=== PATIENT | female | born 1980 | race Caucasian/White ===

== ENCOUNTER 2019-02-04 16:18 | Inpatient (IN) ==
--- NOTE | 2019-02-04 16:35 | Emergency Department Note ---
Disposition Clinical Impression: Suicidal ideation, Auditory hallucinations Disposition: Still a Patient Condition: Undetermined Referrals: Jaimie Kumar [Primary Care Provider] - Time of Disposition: 19:12 General Adult HPI - General Stated complaint: SI Time Seen by Provider: 02/04/19 16:34 Source: patient, EMS Mode of arrival: EMS Limitations: no limitations Nursing Notes Reviewed: Yes Vital Signs Reviewed: Yes - History of Present Illness HPI Narrative: Patient is a 39-year-old female with a past medical history including anxiety and depression, currently not on medications, who does follow up with a psychiatrist, presenting from the halfway with auditory hallucinations and paranoid thoughts. 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 She relapsed yesterday and did IV heroin use. She states yesterday she did have visual hallucinations. She was in the halfway today for a short period of time. However towards the end of her stay, she was having auditory hallucinations. She was having paranoid thoughts. The halfway sent her here for psychiatric evaluation. Upon arrival, the patient was endorsing suicidal ideation and had no plan. She denies fevers, headaches, chest pain, shortness breath, abdominal pain, vomiting, any other complaints at this time. Denies homicidal thoughts. She denies any other drug use - Related Data Home Medications Medication Instructions Recorded Confirmed Topiramate [Topamax] 75 mg PO BID 03/22/17 11/13/18 Desloratadine/Pseudoephedrine 1 each PO DAILY 11/13/18 11/13/18 [Clarinex-D 12 Hour Tablet] Allergies Allergy/AdvReac Type Severity Reaction Status Date / Time aspirin Allergy Hives Verified 05/20/18 19:31 All systems ED: reviewed and negative except as stated. Review of Systems: As Per HPI Constitutional: Denies: fever, chills Cardiovascular: Denies: chest pain, palpitations Respiratory: Denies: dyspnea Gastrointestinal: Denies: abdominal pain, vomiting Neurological: Denies: headache, weakness Psychiatric: Reports: suicidal thoughts, auditory hallucinations, visual hallucinations. Denies: homicidal thoughts Past Medical History - Past Medical History Attestation: Yes The following information was validated with the patient. 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 - Social History Smoking Status: Current every day smoker Smokeless Tobacco Status: No Alcohol use: Reports: none Drug use: Reports: none, other Physical Exam - General Limitations: no limitations General appearance: alert, in no apparent distress - Head Head exam: atraumatic, normocephalic, normal inspection - Eye Eye exam: Present: normal appearance, PERRL, EOMI - ENT ENT exam: normal exam, normal oropharynx, mucous membranes moist - Neck Neck exam: Present: normal inspection, full ROM, trachea midline - Chest Chest inspection: Present: normal inspection, symmetric chest wall rise - Respiratory Respiratory exam: Present: normal lung sounds bilaterally. Absent: respiratory distress - Cardiovascular Cardiovascular exam: Present: regular rate, normal rhythm, normal heart sounds - Abdominal Exam Abdominal exam: Present: soft, Non-Tender. Absent: distention - Extremities Exam Extremities exam: Present: full ROM, normal capillary refill - Neurological Exam Neurological exam: Present: alert, oriented X3 - Psychiatric Psychiatric exam: Present: anxious, suicidal ideation, other (Patient appears paranoid) - Skin Skin exam: Present: warm, dry Course Vital Signs Temperature 97.2 F L 02/04/19 16:30 Pulse Rate 103 02/04/19 16:30 Respiratory Rate 18 02/04/19 16:30 Blood Pressure 114/70 02/04/19 16:30 O2 Sat by Pulse Oximetry 100 02/04/19 16:30 Temperature 97.2 F L 02/04/19 16:30 Pulse Rate 103 02/04/19 16:30 Respiratory Rate 18 02/04/19 16:30 Blood Pressure 114/70 02/04/19 16:30 O2 Sat by Pulse Oximetry 100 02/04/19 16:30 Oxygen Delivery Oxygen Delivery Room Air Medical Decision Making - [facility] Narrative Medical decision making narrative: Patient is presenting from the halfway with auditory hallucinations and concerns of paranoid thought. They sent her to the emergency department for psychiatric evaluation. Patient does have history of an anxiety and depression and a prior inpatient hospitalization. Towards the end of the evaluation, the patient was endorsing suicidal ideation but did not have a plan. She denies any hallucinations at this time. Patient does appear slightly paranoid. We will obtain medical clearance and have 1A/psychiatry evaluate the patient. [place] slipped signed. 19:00 The patient has been medically cleared. Awaiting 1A/psychiatry evaluation. Their recommendations are pending. [facility], Dr. Perez. - Medical Records Medical records reviewed: Yes I reviewed the patient's medical records. - Lab Data Lab results reviewed: Yes I reviewed the patient's lab results. Result diagrams: 02/04/19 16:34 02/04/19 16:34 Lab Results 02/04/19 02/04/19 Range/Units 16:34 16:34 WBC 8.8 (4.3-11.1) K/mcL RBC 4.15 (3.82-4.97) M/mcL Hgb 12.5 (11.5-15.4) g/dL Hct 36.6 (35.3-44.9) % MCV 88.2 (83.0-100.0) fL MCH 30.1 (28.0-33.3) pg MCHC 34.2 (31.6-35.5) g/dL RDW 12.7 (11.5-14.5) % Plt Count 273 (140-400) K/mcL MPV 9.9 (9.4-12.4) fL Immature Gran % 0.3 (0-4) % Seg Neutrophils % 59.4 % Lymphocytes % 30.9 % Monocytes % 8.2 % Eosinophils % 0.7 % Basophils % 0.5 % Neutrophils # 5.2 (1.6-8.9) K/mcL Lymphocytes # 2.7 (0.6-4.6) K/mcL Monocytes # 0.7 (0.0-1.3) K/mcL Eosinophils # 0.1 (0.0-0.6) K/mcL Basophils # 0.0 (0.0-0.2) K/mcL Sodium 137 (136-145) mEq/L Potassium 3.3 L (3.5-5.1) mEq/L Chloride 98 (98-107) mEq/L Carbon Dioxide 24 (23-29) mEq/L BUN 11 (6-20) mg/dL Creatinine 1.04 (0.60-1.20) mg/dL Est GFR ( Amer) > 60 (> 60) Est GFR (Non-Af Amer) 59 L (> 60) BUN/Creatinine Ratio 11 (6-26) Glucose 88 (70-105) mg/dL Calculated Osmolality 283 (280-300) Calcium 9.3 (8.6-10.3) mg/dL Salicylates < 2.5 L (15.0-30.0) mg/dL Acetaminophen < 10 L (10-20) mcg/mL Ethyl Alcohol < 10 (Less than 10) mg/dL Attestation Statement - Attestation Attestation: Patient was seen with resident physician. I reviewed the history, physical, assessment and plan, and agree with the findings. I also personally evaluated this patient and had [id number] time with this patient. 39-year-old female presents emergency Department chief complaint of hallucinations and suicidal ideation. Patient was at the halfway. It is unclear why she was resting the first place. But she was noted to start having some hallucinations. At which point the halfway contacted EMS and she was brought to the emergency department. On arrival patient initially denied suicidal ideation but then later admitted to several staff that she is been thinking that way. She says she is a heroin abuser. She said she has not used heroin in the last day. She denies fevers chills chest pain short of breath or other complaints. Review of systems as above and are negative. Physical exam vital signs are stable. ENT is unremarkable. Heart regular rhythm and rate. Lungs are clear. Abdomen is soft and nontender. Extremities are unremarkable. Neurologically intact. Skin no rashes. Psych anxious and depressed. ED course. We will do the usual medical clearance labs for psychiatry. Patient was placed on a temporary involuntary admission status. She will need a formal psychiatric evaluation to determine disposition. Hemodynamically she was monitored in stable while in the emergency department. We are awaiting urinalysis at the time of shift change. One a had not yet come evaluate the patient. We discussed with night auditor team who agreed to accept the patient for final disposition. Agree with resident physician assessment and plan.
[2019-02-04] MEDS ORDERED: *HR* LORazepam 1 MG TABLET PO ONE (16:45)
[2019-02-04 18:24] LABS: Basophils % 0.5 %; Eosinophils # 0.1 K/mcL (0.0-0.6); Eosinophils % 0.7 %; Hematocrit 36.6 % (35.3-44.9); Hemoglobin 12.5 g/dL (11.5-15.4); Immature Granulocytes % 0.3 % (0-4); Lymphocytes # 2.7 K/mcL (0.6-4.6); Lymphocytes % 30.9 %; Mean Corpuscular HGB Conc 34.2 g/dL (31.6-35.5); Mean Corpuscular Hemoglobin 30.1 pg (28.0-33.3); Mean Corpuscular Volume 88.2 fL (83.0-100.0); Mean Platelet Volume 9.9 fL (9.4-12.4); Monocytes # 0.7 K/mcL (0.0-1.3); Monocytes % 8.2 %; Neutrophils # 5.2 K/mcL (1.6-8.9); Platelet Count 273 K/mcL (140-400); Red Blood Count 4.15 M/mcL (3.82-4.97); Red Cell Distribution Width 12.7 % (11.5-14.5); Segmented Neutrophils % 59.4 %; White Blood Count 8.8 K/mcL (4.3-11.1)
[2019-02-04 18:44] LABS: Acetaminophen < 10 mcg/mL (10-20); BUN/Creatinine Ratio 11 (6-26); Blood Urea Nitrogen 11 mg/dL (6-20); Calcium 9.3 mg/dL (8.6-10.3); Carbon Dioxide 24 mEq/L (23-29); Chloride 98 mEq/L (98-107); Ethanol < 10 mg/dL (Less than 10); Glucose 88 mg/dL (70-105); Osmolality,Calculated 283 (280-300); Potassium 3.3 mEq/L (3.5-5.1); Salicylate < 2.5 mg/dL (15.0-30.0); Sodium 137 mEq/L (136-145); eGFR For African Americans > 60 (> 60); eGFR For Non-African Americans 59 (> 60)
--- NOTE | 2019-02-04 19:04 | Emergency Department Note ---
Disposition Clinical Impression: Suicidal ideation, Auditory hallucinations Disposition: Admitted As Inpatient Condition: Fair Referrals: Jaimie Kumar [Primary Care Provider] - Time of Disposition: 23:18 General Adult HPI - General Chief complaint: ED Psychiatric Symptoms Stated complaint: SI Time Seen by Provider: 02/04/19 16:34 Source: patient, EMS Limitations: altered mental status - History of Present Illness Pain Scale: 5 - Related Data Home Medications Medication Instructions Recorded Confirmed Topiramate [Topamax] 75 mg PO BID 03/22/17 11/13/18 Desloratadine/Pseudoephedrine 1 each PO DAILY 11/13/18 11/13/18 [Clarinex-D 12 Hour Tablet] Allergies Allergy/AdvReac Type Severity Reaction Status Date / Time aspirin Allergy Hives Verified 05/20/18 19:31 Past Medical History - Past Medical History Medical history: Reports: migraine Surgical history: Reports: , herniorrhaphy, hysterectomy Psychiatric history: Reports: anxiety, depression, 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 - Social History Smoking Status: Current every day smoker Smokeless Tobacco Status: No Alcohol use: Reports: none Drug use: Reports: opiates, other Physical Exam - General Limitations: altered mental status General appearance: alert, anxious Course Vital Signs Temperature 97.2 F L 02/04/19 16:30 Pulse Rate 103 02/04/19 16:30 Respiratory Rate 18 02/04/19 16:30 Blood Pressure 114/70 02/04/19 16:30 O2 Sat by Pulse Oximetry 100 02/04/19 16:30 Temperature 97.2 F L 02/04/19 16:30 Pulse Rate 103 02/04/19 16:30 Respiratory Rate 18 02/04/19 16:30 Blood Pressure 114/70 02/04/19 16:30 O2 Sat by Pulse Oximetry 100 02/04/19 16:30 Oxygen Delivery Oxygen Delivery Room Air Medical Decision Making - Lab Data Result diagrams: 02/04/19 16:34 02/04/19 16:34 Lab Results 02/04/19 02/04/19 02/04/19 Range/Units 16:34 16:34 19:13 WBC 8.8 (4.3-11.1) K/mcL RBC 4.15 (3.82-4.97) M/mcL Hgb 12.5 (11.5-15.4) g/dL Hct 36.6 (35.3-44.9) % MCV 88.2 (83.0-100.0) fL MCH 30.1 (28.0-33.3) pg MCHC 34.2 (31.6-35.5) g/dL RDW 12.7 (11.5-14.5) % Plt Count 273 (140-400) K/mcL MPV 9.9 (9.4-12.4) fL Immature Gran % 0.3 (0-4) % Seg Neutrophils % 59.4 % Lymphocytes % 30.9 % Monocytes % 8.2 % Eosinophils % 0.7 % Basophils % 0.5 % Neutrophils # 5.2 (1.6-8.9) K/mcL Lymphocytes # 2.7 (0.6-4.6) K/mcL Monocytes # 0.7 (0.0-1.3) K/mcL Eosinophils # 0.1 (0.0-0.6) K/mcL Basophils # 0.0 (0.0-0.2) K/mcL Sodium 137 (136-145) mEq/L Potassium 3.3 L (3.5-5.1) mEq/L Chloride 98 (98-107) mEq/L Carbon Dioxide 24 (23-29) mEq/L BUN 11 (6-20) mg/dL Creatinine 1.04 (0.60-1.20) mg/dL Est GFR ( Amer) > 60 (> 60) Est GFR (Non-Af Amer) 59 L (> 60) BUN/Creatinine Ratio 11 (6-26) Glucose 88 (70-105) mg/dL Calculated Osmolality 283 (280-300) Calcium 9.3 (8.6-10.3) mg/dL Urine Color Dark Yellow (Yellow) Urine Clarity Turbid A (Clear) Urine pH 6.0 (5.0-8.0) pH Units Ur Specific [place] 1.021 (1.010-1.025) Urine Protein 30 H (Neg-Trace) mg/dL Urine Glucose (UA) Normal (Normal) mg/dL Urine Ketones 15 H (Negative) mg/dL Urine Blood Negative (Negative) Urine Nitrite Negative (Negative) Urine Bilirubin Small H (Negative) Urine Urobilinogen Normal (Normal) mg/dL Ur Leukocyte Esterase Moderate H (Negative) Urine Microscopic RBC 0-3 (0-3) per hpf Urine Microscopic WBC 50-100 H (0-3) per hpf Ur Squamous Epith Cells Many H (None-Few) per lpf Calcium Oxalate Crystal Present Urine Bacteria Many H (None-Few) per hpf Hyaline Casts Few (None-Few) per lpf Salicylates < 2.5 L (15.0-30.0) mg/dL Urine Opiates Screen (Zwckak=341) ng/mL Ur Buprenorphine Scrn (Cutoff=5) ng/mL Acetaminophen < 10 L (10-20) mcg/mL Ur Barbiturates Screen (Ggmltk=655) ng/mL Ur Phencyclidine Scrn (Cutoff=25) ng/mL Ur Amphetamines Screen (Jquryc=4463) ng/mL U Benzodiazepines Scrn (Sazifd=923) ng/mL Urine Cocaine Screen (Cutoff= 300) ng/mL U Marijuana (THC) Screen (Cutoff = 50) ng/mL Ur Drug Screen Interp Ethyl Alcohol < 10 (Less than 10) mg/dL 02/04/19 Range/Units 19:13 WBC (4.3-11.1) K/mcL RBC (3.82-4.97) M/mcL Hgb (11.5-15.4) g/dL Hct (35.3-44.9) % MCV (83.0-100.0) fL MCH (28.0-33.3) pg MCHC (31.6-35.5) g/dL RDW (11.5-14.5) % Plt Count (140-400) K/mcL MPV (9.4-12.4) fL Immature Gran % (0-4) % Seg Neutrophils % % Lymphocytes % % Monocytes % % Eosinophils % % Basophils % % Neutrophils # (1.6-8.9) K/mcL Lymphocytes # (0.6-4.6) K/mcL Monocytes # (0.0-1.3) K/mcL Eosinophils # (0.0-0.6) K/mcL Basophils # (0.0-0.2) K/mcL Sodium (136-145) mEq/L Potassium (3.5-5.1) mEq/L Chloride (98-107) mEq/L Carbon Dioxide (23-29) mEq/L BUN (6-20) mg/dL Creatinine (0.60-1.20) mg/dL Est GFR ( Amer) (> 60) Est GFR (Non-Af Amer) (> 60) BUN/Creatinine Ratio (6-26) Glucose (70-105) mg/dL Calculated Osmolality (280-300) Calcium (8.6-10.3) mg/dL Urine Color (Yellow) Urine Clarity (Clear) Urine pH (5.0-8.0) pH Units Ur Specific [place] (1.010-1.025) Urine Protein (Neg-Trace) mg/dL Urine Glucose (UA) (Normal) mg/dL Urine Ketones (Negative) mg/dL Urine Blood (Negative) Urine Nitrite (Negative) Urine Bilirubin (Negative) Urine Urobilinogen (Normal) mg/dL Ur Leukocyte Esterase (Negative) Urine Microscopic RBC (0-3) per hpf Urine Microscopic WBC (0-3) per hpf Ur Squamous Epith Cells (None-Few) per lpf Calcium Oxalate Crystal Urine Bacteria (None-Few) per hpf Hyaline Casts (None-Few) per lpf Salicylates (15.0-30.0) mg/dL Urine Opiates Screen Negative (Nkdszf=219) ng/mL Ur Buprenorphine Scrn Positive H (Cutoff=5) ng/mL Acetaminophen (10-20) mcg/mL Ur Barbiturates Screen Negative (Vjrata=451) ng/mL Ur Phencyclidine Scrn Negative (Cutoff=25) ng/mL Ur Amphetamines Screen Positive H (Mglgin=6590) ng/mL U Benzodiazepines Scrn Negative (Kmxxxs=817) ng/mL Urine Cocaine Screen Positive H (Cutoff= 300) ng/mL U Marijuana (THC) Screen Negative (Cutoff = 50) ng/mL Ur Drug Screen Interp See Below Ethyl Alcohol (Less than 10) mg/dL Attestation Statement - Attestation Attestation: Care assumed from Dr. Vegas at 19:00 pending mental health evaluation. Urine pending. Patient appears in no acute distress on exam 23:18: 1A accepts admission
[2019-02-04 19:28] LABS: Bilirubin,Urine Small (Negative); Blood,Urine Negative (Negative); Clarity,Urine Turbid (Clear); Color,Urine Dark Yellow (Yellow); Glucose,Urine (UA) Normal (Normal); Ketones,Urine 15 mg/dL (Negative); Leukocyte Esterase,Urine Moderate (Negative); Nitrite,Urine Negative (Negative); Protein,Urine 30 mg/dL (Neg-Trace); Specific Gravity,Urine 1.021 (1.010-1.025); Urobilinogen,Urine Normal (Normal)
[2019-02-04 19:30] LABS: Bacteria,Urine Many per hpf (None-Few); Squamous Epithelial Cell,Urine Many per lpf (None-Few)
[2019-02-04 19:37] LABS: Amphetamine Screen,Urine Positive ng/mL (Cutoff=1000); Barbiturate Screen,Urine Negative ng/mL (Cutoff=200); Benzodiazepines Screen,Urine Negative ng/mL (Cutoff=200); Cannabinoid Screen,Urine Negative ng/mL (Cutoff = 50); Cocaine Screen,Urine Positive ng/mL (Cutoff= 300); Opiate Screen,Urine Negative ng/mL (Cutoff=300); Phencyclidine Screen,Urine Negative ng/mL (Cutoff=25)
[2019-02-04 19:40] LABS: Calcium Oxalate Crystals,Urine Present; Hyaline Casts,Urine Few per lpf (None-Few); RBC,Urine 0-3 per hpf (0-3); WBC,Urine 50-100 per hpf (0-3)
[2019-02-04] MEDS ORDERED: OLANZapine 5 MG TAB.RAPDIS PO ONE (23:45)
[2019-02-05] MEDS ORDERED: Haloperidol Lactate 5 MG/ML VIAL IM PRN (00:02)
[2019-02-05] MEDS ORDERED: traZODone 50 MG TABLET PO PRN (00:02)
[2019-02-05] MEDS ORDERED: Ibuprofen 400 MG TABLET PO PRN (00:02)
[2019-02-05] MEDS ORDERED: MOM Conc 10 ML UD.LIQ PO PRN (00:02)
[2019-02-05] MEDS ORDERED: *HR* LORazepam 2 MG/ML VIAL IM PRN (00:02)
[2019-02-05] MEDS ORDERED: hydrOXYzine pamoate 25 MG CAPSULE PO PRN (00:02)
[2019-02-05] MEDS ORDERED: *HR* LORazepam 1 MG TABLET PO PRN (00:02)
[2019-02-05] MEDS ORDERED: Mag Hydrox/Al Hydrox/Simeth 30 ML UDC PO PRN (00:02)
[2019-02-05] MEDS: Nicotine 21 MG PATCH.TD24 TD SCH ×2 (10:13→17:36)
--- NOTE | 2019-02-05 15:31 | Psychiatry History & Physical ---
Date of Encounter: 02/05/19 Time of Encounter: 11:00 History of Present Illness Patient Stated Chief Complaint: Disorderly intoxication and suicidal thoughts Medicare Admission Attestation: For traditional Medicare patients the provided hospital inpatient services are reasonable and necessary and in the case of services not specified as inpatient-only under 42 CFR 419.22 (n), that they are appropriately provided as inpatient services in accordance 42 CFR 412.3. For Critical Access Hospital the patient may reasonably be expected to be discharged or transferred to a hospital within 96 hours after admission to the Critical Access Hospital. Admitted From: Emergency Dept Plans for Post Hospital Care: Home History of Present Illness: Ms. Delgado is a 39 year old female with past medical history including anxiety and depression, currently not on medications. She presents from the ER and was brought in from the retirement with auditory hallucinations and paranoid thoughts. Client endorses being clean from heroin for past 4 years and completion of rehabilitation program. She reports relapsing yesterday and did IV heroin. She does report visual hallucinations yesterday, but denies them currently. She does report auditory hallucinations while in longterm and paranoid thoughts, but denies them currently. In the ER she endorsed suicidal ideation without plan. Client was hard to arouse to obtain for review of systems and history. Client did describe several suicidal attempts and admits to [place] 1A, but would not elaborate. Unable to ascertain other information about clients history or c urrent mental status due refusal by client at time of interview. Urine toxicology was positive for methamphetamine, buprenorphine and cocaine. OARRS check shows Subloxone last filled on 12/28/18 for 7 days at 16 mg/day. Past Med Surg Social Fam HX - Past Medical History Medical history: migraine - Past Surgical History Surgical History: , cholecystectomy, herniorrhaphy, hysterectomy - Social History Smoking Status: Current every day smoker Smokeless Tobacco Status: No Alcohol use: none Drug use: opiates, methamphetamine, IV Drug Use, other Medications & Allergies Topiramate [Topamax] 75 mg PO BID 03/22/17 [History] Desloratadine/Pseudoephedrine [Clarinex-D 12 Hour Tablet] 1 each PO DAILY 11/13/18 [History] Allergy/AdvReac Type Severity Reaction Status Date / Time aspirin Allergy Hives Verified 05/20/18 19:31 Review of Systems ROS limited: due to patient condition (Client refused to participate and complete evaluation. ) Constitutional: Denies: fever, weakness, night sweats Cardiovascular: Denies: chest pain, palpitations, edema, syncope Respiratory: Denies: cough, dyspnea, sputum production Musculoskeletal: Denies: myalgia Psychiatric: Reports: depression, abnormal sleep pattern (Self-reports not sleeping for past few days. ). Denies: suicidal ideation, visual hallucinations Exam - HEENT Head exam IM: Present: atraumatic, normal inspection Eye exam IM: Present: normal appearance ENT exam IM: Present: normal exam, normal external ear exam - Neurological Neurological exam: Present: alert - Respiratory Respiratory exam IM: Absent: respiratory distress, wheezes, tachypnea - Extremities Extremities exam IM: Present: normal inspection. Absent: mottling, pedal edema - Skin Skin exam IM: Present: intact, normal color. Absent: cyanosis, mottled - Constitutional Vitals: Temp Pulse Resp BP Pulse Ox 98.2 F 105 18 107/69 98 02/05/19 00:00 02/05/19 00:00 02/05/19 00:00 02/05/19 00:00 02/05/19 00:00 General appearance: unkempt, malodorous - Musculoskeletal Gait: normal Station: relaxed Strength & Tone: normal for patient - Psychiatric Patient Orientation: Yes Person, Yes Time, Yes Place, Yes Circumstance Level of alertness: Sedated Behavior: agitated, uncooperative, withdrawn Psychomotor activity: Slowed Eye Contact: No Eye Contact Mood Description: Euthymic/stable Affect description: congruent with mood Speech Volume: Soft/Quiet Speech pattern: normal rate, mumbled Language & Vocabulary: consistent with education Thought Process: Intact, Logical, Linear Thought Content: Yes Intact, Yes Suicidal ideation Perceptual Disturbances: No Reacting to internal stimuli, No Auditory hallucinations, No Visual hallucinations Attention Span Ability: Unable to Focus, Unable to Sustain Attention Memory Description: Immediate Intact Patient Reliability: Questionable Historian Fund of knowledge: Yes average Intelligence Estimate: Above [place] Judgment: Poor Insight: Minimal Results - Drug Levels and Toxicology Drug Levels and Toxicology: Drug Levels and Toxicity 02/04/19 02/04/19 16:34 19:13 Urine Opiates Screen Negative Acetaminophen < 10 L Ur Barbiturates Screen Negative Ur Phencyclidine Scrn Negative Ur Amphetamines Screen Positive H U Benzodiazepines Scrn Negative Urine Cocaine Screen Positive H U Marijuana (THC) Screen Negative Ethyl Alcohol < 10 - Labs Labs: Laboratory Last Values WBC 8.8 K/mcL (4.3-11.1) 02/04/19 16:34 RBC 4.15 M/mcL (3.82-4.97) 02/04/19 16:34 Hgb 12.5 g/dL (11.5-15.4) 02/04/19 16:34 Hct 36.6 % (35.3-44.9) 02/04/19 16:34 MCV 88.2 fL (83.0-100.0) 02/04/19 16:34 MCH 30.1 pg (28.0-33.3) 02/04/19 16:34 MCHC 34.2 g/dL (31.6-35.5) 02/04/19 16:34 RDW 12.7 % (11.5-14.5) 02/04/19 16:34 Plt Count 273 K/mcL (140-400) 02/04/19 16:34 MPV 9.9 fL (9.4-12.4) 02/04/19 16:34 Immature Gran % 0.3 % (0-4) 02/04/19 16:34 Seg Neutrophils % 59.4 % 02/04/19 16:34 Lymphocytes % 30.9 % 02/04/19 16:34 Monocytes % 8.2 % 02/04/19 16:34 Eosinophils % 0.7 % 02/04/19 16:34 Basophils % 0.5 % 02/04/19 16:34 Neutrophils # 5.2 K/mcL (1.6-8.9) 02/04/19 16:34 Lymphocytes # 2.7 K/mcL (0.6-4.6) 02/04/19 16:34 Monocytes # 0.7 K/mcL (0.0-1.3) 02/04/19 16:34 Eosinophils # 0.1 K/mcL (0.0-0.6) 02/04/19 16:34 Basophils # 0.0 K/mcL (0.0-0.2) 02/04/19 16:34 Sodium 137 mEq/L (136-145) 02/04/19 16:34 Potassium 3.3 mEq/L (3.5-5.1) L 02/04/19 16:34 Chloride 98 mEq/L (98-107) 02/04/19 16:34 Carbon Dioxide 24 mEq/L (23-29) 02/04/19 16:34 BUN 11 mg/dL (6-20) 02/04/19 16:34 Creatinine 1.04 mg/dL (0.60-1.20) 02/04/19 16:34 Est GFR ( Amer) > 60 (> 60) 02/04/19 16:34 Est GFR (Non-Af Amer) 59 (> 60) L 02/04/19 16:34 BUN/Creatinine Ratio 11 (6-26) 02/04/19 16:34 Glucose 88 mg/dL (70-105) 02/04/19 16:34 Calculated Osmolality 283 (280-300) 02/04/19 16:34 Calcium 9.3 mg/dL (8.6-10.3) 02/04/19 16:34 Urine Color Dark Yellow (Yellow) 02/04/19 19:13 Urine Clarity Turbid (Clear) A 02/04/19 19:13 Urine pH 6.0 pH Units (5.0-8.0) 02/04/19 19:13 Ur Specific [place] 1.021 (1.010-1.025) 02/04/19 19:13 Urine Protein 30 mg/dL (Neg-Trace) H 02/04/19 19:13 Urine Glucose (UA) Normal mg/dL (Normal) 02/04/19 19:13 Urine Ketones 15 mg/dL (Negative) H 02/04/19 19:13 Urine Blood Negative (Negative) 02/04/19 19:13 Urine Nitrite Negative (Negative) 02/04/19 19:13 Urine Bilirubin Small (Negative) H 02/04/19 19:13 Urine Urobilinogen Normal mg/dL (Normal) 02/04/19 19:13 Ur Leukocyte Esterase Moderate (Negative) H 02/04/19 19:13 Urine Microscopic RBC 0-3 per hpf (0-3) 02/04/19 19:13 Urine Microscopic WBC 50-100 per hpf (0-3) H 02/04/19 19:13 Ur Squamous Epith Cells Many per lpf (None-Few) H 02/04/19 19:13 Calcium Oxalate Crystal Present 02/04/19 19:13 Urine Bacteria Many per hpf (None-Few) H 02/04/19 19:13 Hyaline Casts Few per lpf (None-Few) 02/04/19 19:13 Salicylates < 2.5 mg/dL (15.0-30.0) L 02/04/19 16:34 Urine Opiates Screen Negative ng/mL (Zyoxxy=910) 02/04/19 19:13 Ur Buprenorphine Scrn Positive ng/mL (Cutoff=5) H 02/04/19 19:13 Acetaminophen < 10 mcg/mL (10-20) L 02/04/19 16:34 Ur Barbiturates Screen Negative ng/mL (Ualtqk=364) 02/04/19 19:13 Ur Phencyclidine Scrn Negative ng/mL (Cutoff=25) 02/04/19 19:13 Ur Amphetamines Screen Positive ng/mL (Zktdqw=0367) H 02/04/19 19:13 U Benzodiazepines Scrn Negative ng/mL (Tropfc=672) 02/04/19 19:13 Urine Cocaine Screen Positive ng/mL (Cutoff= 300) H 02/04/19 19:13 U Marijuana (THC) Screen Negative ng/mL (Cutoff = 50) 02/04/19 19:13 Ur Drug Screen Interp See Below 02/04/19 19:13 Ethyl Alcohol < 10 mg/dL (Less than 10) 02/04/19 16:34 Assessment and Plan (1) Drug-induced psychotic disorder with hallucinations Current visit: Yes Status: Acute Plan: Admit inpatient for safety and stabilization, Close observation, Suicide Precautions per unit protocol, Monitor sleep Additional Plan: Start client on atypical antipsychotic medication Olanzapine 10 mg PO once daily for mood stability and treat psychotic features. Risks, benefits, side effects, alternatives discussed w/pt: Yes Patient agreeable to treatment: Yes Plans for Post Hospital Care: at Home Estimated Length of Stay (Days): 3 - Attending Attestation I examined this patient and my medical decision-making was reviewed with the Resident Physician. I agree with the documented findings, disposition and treatment plan as described except to the extent set forth below. Client refused to engage with this blurb writer. Multiple staff members attempted to get her out of bed. Client stated she was too tired and repeatedly fell asleep. Minimally cooperative with resident this morning. Tox screen positive for multiple substances. Likely crashing. Psychosis may be all substance induced. Will monitor for now.
[2019-02-06] MEDS: Nicotine 21 MG PATCH.TD24 TD SCH (09:22)
--- NOTE | 2019-02-06 10:14 | Discharge Summary ---
Date of Encounter: 02/06/19 Time of Encounter: 10:00 Diagnosis - Discharge Diagnosis (1) Drug-induced psychotic disorder with hallucinations Status: Acute Medications - Discharge Medications Desloratadine/Pseudoephedrine [Clarinex-D 12 Hour Tablet] 1 tab PO DAILY PRN 11/13/18 [History] Doxepin HCl 10 mg PO HS 02/05/19 [History] Gabapentin [Neurontin] 300 mg PO BID 02/05/19 [History] Ibuprofen 800 mg PO TID PRN 02/05/19 [History] Topiramate [Topamax] 100 mg PO BID 02/05/19 [History] cloNIDine HCl [CloNIDine HCl] 0.1 mg PO BID PRN 02/05/19 [History] Allergy/AdvReac Type Severity Reaction Status Date / Time aspirin Allergy Hives Verified 05/20/18 19:31 Results Procedures and tests throughout hospitalization: Completed Lab Orders Category Date Time Status Acetaminophen Stat Lab 02/04/19 16:34 Completed Basic Metabolic Panel Stat Lab 02/04/19 16:34 Completed Complete Blood Count [HEME] Stat Lab 02/04/19 16:34 Completed Drug Screen, Urine [UCHEM] Stat Lab 02/04/19 19:13 Completed Ethanol Stat Lab 02/04/19 16:34 Completed Salicylate Stat Lab 02/04/19 16:34 Completed Urinalysis reflex Microscopic [URIN] Stat Lab 02/04/19 19:13 Completed Provider Date of admission: 02/05/19 00:02 Primary care physician: PCP NONE Discharging clinician: Jacey Allen Psychiatry Exam - Constitutional Vitals: Temp Pulse Resp BP Pulse Ox 97.9 F 70 16 107/67 98 02/05/19 21:00 02/05/19 21:00 02/05/19 21:00 02/05/19 21:00 02/05/19 21:00 General appearance: age & developmentally appropriate, well-groomed, well- nourished - Musculoskeletal Gait: normal Station: relaxed Strength & Tone: normal for patient - Psychiatric Patient Orientation: Yes Person, Yes Time, Yes Place Level of alertness: Alert Behavior: calm, cooperative Psychomotor activity: Normal Eye Contact: Maintains Eye Contact Mood Description: Euthymic/stable Affect description: congruent with mood, full range Speech Volume: Normal Speech pattern: normal rate, normal rhythm, normal tone, fluent, spontaneous Language & Vocabulary: consistent with education Thought Process: Linear, Goal Oriented Thought Content: No Suicidal ideation, No Homicidal ideation, No Overt delusions Perceptual Disturbances: No Auditory hallucinations, No Visual hallucinations Attention Span Ability: Capable of Focused Attention Memory Description: Grossly Intact Patient Reliability: Reliable Historian Fund of knowledge: Yes abstraction ability, Yes aware of current events Intelligence Estimate: Average Judgment: Fair Insight: Partial Hospital Course Hospital course: Ms. Delgado is a 39 year old female who was admitted with meth induced psychosis. Client was also endorsing SI/HI at time of admission. She has slept on the unit for the past two days and would not wake up to interact with staff. Today she is awake and alert. Very pleasant. Thinking clearly. Client states she used to be heavy into drugs. Heroin was her drug of choice and she used for more than ten years. She joined a Suboxone Clinic and has been sober for the last four years. However, she could not afford to make her Suboxone payment at the end of November and rescheduled her appointment. That was her second reschedule so the clinic told her she could not come back for 29 days. Client relapsed that first week off her Suboxone. Has been buying Suboxone off the street since December when she can afford it. Sees Dr. Fulton at [facility] for mild depression. Currently only takes Clonidine from Dr. Fulton at night to help her sleep. Also prescribed Topamax for headaches and Neurontin for neuropathic pain from an old injury. Dr. Fulton got client into a free Suboxone Clinic and her first appointment is tomorrow. Client does not want to miss this appointment. Client will be seen weekly at [facility] to fulfill her mental health requirements for the Suboxone Clinic. Client is very aware of when all of her appointments are and who she will be seeing. Client is adamantly denying SI/HI/AH/VH. States she has been suicidal in the past with two prior mental health admissions but states her drug use is what drove her mental health issues. Has not had any issues beyond mild depression since she has been clean. Used meth on her 39th birthday with some friends. States this is the third time in her life she has done meth and that every time she has had prolonged psychosis and ended up in group home. Ended up in group home this time as well. Client states police were going to release her to her but ended up taking her to the ER instead based on her degree of psychosis. Client states wants her home and is currently on his way to the unit to deliver her some clothes. Will plan to discharge client to his care when he arrives. She is already well linked with services. Psychosis has resolved. Her thinking is linear and organized. No evidence of mood problems. She is pleasant, bright, reactive, and future oriented. Total time spent with client greater than 30 minutes. Patient was educated of her diagnosis and the risks, benefits, and side effects of this treatment and alternative treatment options and was monitored for responsiveness and side effects. Mood, anxiety, sleep, appetite, and interest improved, as did future orientation. Self-harm thoughts subsided, thinking cleared, psychosis resolved, and mood stabilized. Patient was able to attend both individual and group therapy sessions as well as meeting with the psychiatrist daily and urged to discuss any medication or treatment issues or other concerns. The patient was educated primarily by verbal means about their diagnosis and manifestations in their life. The option for treatment including group and individual therapy programming was offered to the patient in the use of medications with all their potential risks, benefits, and side effects were discussed with the patient at length. The patient was given the opportunity to ask questions and was noted to participate in the treatment in the planning process. The patient felt ready and eager to be discharged from the inpatient psychiatric unit to continue on with treatment as an outpatient. The patient agreed that she is safe for this disposition. The patient was considered to be able to participate in informed consent and decision making with respect to medical, legal, and financial issues of the time of discharge. At the time of discharge the patient adamantly denied any concerns for lethality including suicidal or homicidal thoughts ideations or plans and was future oriented toward ongoing mental health care, medical follow-up and sobriety. - Time Spent with Patient Total time spent providing and/or coordinating discharge services: Greater than 30 minutes Assessment and Plan - Patient/Caregiver Discharge Instructions Activity: resume usual activities as tolerated Diet: regular diet - Follow up Plan Functional capacity at discharge: independent ambulation Overall status at discharge: Stable Disposition: Home, Self-Care Quality - Multiple Antipsychotics Patient discharged on 2 or more antipsychotic medications: No Procedures - Procedures Procedures: Medication Management, Crisis Stabilization, Supportive Therapy, Group Therapy
[2019-02-06 12:15] VITALS: BP 91/66
== END 2019-02-06 11:00 | disposition home or self-care (01) | DRG 897 ==
LOC: 1ANU 16:18 → EMEROOARM 16:18 → 1ANU 23:48
PROVIDERS: ADMIT Psychiatry & Neurology Psychiatry; ATTEND Psychiatry & Neurology Psychiatry

== ENCOUNTER 2019-06-09 19:04 | Inpatient (IN) ==
[2019-06-09] MEDS ORDERED: 0.9 % Sodium Chloride 2,000 ML ONE (19:25)
[2019-06-09 19:31] LABS: Bilirubin,Urine Negative (Negative); Blood,Urine Moderate (Negative); Clarity,Urine Clear (Clear); Color,Urine Yellow (Yellow); Glucose,Urine (UA) Normal (Normal); Ketones,Urine Negative (Negative); Leukocyte Esterase,Urine Trace (Negative); Nitrite,Urine Negative (Negative); Protein,Urine Trace mg/dL (Neg-Trace); Specific Gravity,Urine 1.011 (1.010-1.025); Urobilinogen,Urine Normal (Normal)
[2019-06-09 19:33] LABS: Hyaline Casts,Urine None Seen per lpf (None-Few); Squamous Epithelial Cell,Urine Many per lpf (None-Few)
[2019-06-09 19:39] LABS: Amphetamine Screen,Urine Negative ng/mL (Cutoff=1000); Barbiturate Screen,Urine Negative ng/mL (Cutoff=200); Benzodiazepines Screen,Urine Negative ng/mL (Cutoff=200); Cannabinoid Screen,Urine Negative ng/mL (Cutoff = 50); Cocaine Screen,Urine Negative ng/mL (Cutoff= 300); Opiate Screen,Urine Negative ng/mL (Cutoff=300); Phencyclidine Screen,Urine Negative ng/mL (Cutoff=25)
[2019-06-09 19:42] LABS: Bacteria,Urine Few per hpf (None-Few)
[2019-06-09] MEDS ORDERED: 0.9 % Sodium Chloride 1,000 ML IVC STA (19:43)
[2019-06-09 19:52] LABS: Basophils # 0.1 K/mcL (0.0-0.2); Basophils % 0.4 %; Eosinophils # 0.1 K/mcL (0.0-0.6); Eosinophils % 0.4 %; Hematocrit 40.2 % (35.3-44.9); Hemoglobin 13.8 g/dL (11.5-15.4); Immature Granulocytes % 1.2 % (0-4); Immature Platelets 2.1 % (1.1-6.1); Lymphocytes # 1.6 K/mcL (0.6-4.6); Mean Corpuscular HGB Conc 34.3 g/dL (31.6-35.5); Mean Corpuscular Hemoglobin 31.2 pg (28.0-33.3); Mean Platelet Volume 8.9 fL (9.4-12.4); Monocytes # 1.4 K/mcL (0.0-1.3); Monocytes % 6.2 %; Platelet Count 295 K/mcL (140-400); Red Blood Count 4.42 M/mcL (3.82-4.97); Red Cell Distribution Width 12.9 % (11.5-14.5); Segmented Neutrophils % 84.8 %; White Blood Count 22.4 K/mcL (4.3-11.1)
[2019-06-09 20:03] LABS: Acetaminophen < 10 mcg/mL (10-20); Albumin 3.8 g/dL (3.5-5.7); Albumin/Globulin Ratio 1.4 (1.1-2.2); Bilirubin,Direct 0.1 mg/dL (0.0-0.2); Bilirubin,Indirect 0.2 mg/dL (0.0-1.0); Bilirubin,Total 0.3 mg/dL (0.3-1.0); Calcium 8.8 mg/dL (8.6-10.3); Ethanol < 10 mg/dL (Less than 10); Globulin 2.8 g/dL (2.4-3.5); Magnesium 1.7 mg/dL (1.6-2.6); Potassium 4.1 mEq/L (3.5-5.1); Salicylate < 2.5 mg/dL (15.0-30.0); Total Protein 6.6 g/dL (6.4-8.9)
[2019-06-09] MEDS ORDERED: *HR* Dextrose 50 % in Water (Syg) 50 ML SYRINGE IVP ONE (21:45)
[2019-06-09] MEDS ORDERED: *HR* Dextrose 50 % in Water (Syg) 50 ML SYRINGE ONE (21:56)
[2019-06-09] MEDS: 0.9 % Sodium Chloride 1,000 ML IVC SCH (22:36)
[2019-06-10] MEDS ORDERED: 0.9 % Sodium Chloride 1,000 ML IVC ONE ×2 (00:20→01:48)
[2019-06-10] MEDS ORDERED: Naloxone 0.4 MG/ML INJ IVP PRN (00:21)
[2019-06-10] MEDS ORDERED: Dextrose Gel 15 GM/37.5 ML TUBE PO PRN ×2 (01:45)
[2019-06-10] MEDS ORDERED: D5% in Water 1,000 ML IVC PRN (01:45)
[2019-06-10 01:46] LABS: Hematocrit 41.3 % (35.3-44.9); Hemoglobin 13.7 g/dL (11.5-15.4); Mean Corpuscular HGB Conc 33.2 g/dL (31.6-35.5); Mean Corpuscular Hemoglobin 30.9 pg (28.0-33.3); Mean Platelet Volume 9.2 fL (9.4-12.4); Platelet Count 283 K/mcL (140-400); Red Blood Count 4.44 M/mcL (3.82-4.97); White Blood Count 24.4 K/mcL (4.3-11.1)
[2019-06-10 01:50] LABS: VBG Ionized Calcium 0.98 mmol/L (1.15-1.35)
[2019-06-10] MEDS ORDERED: Calcium Gluconate 1gm/50mL 1 GM/50 ML BAG IVPB ONE (02:08)
[2019-06-10 02:24] LABS: Albumin 3.7 g/dL (3.5-5.7); Albumin/Globulin Ratio 1.3 (1.1-2.2); Bilirubin,Total 0.3 mg/dL (0.3-1.0); Calcium 7.7 mg/dL (8.6-10.3); Globulin 2.8 g/dL (2.4-3.5); Magnesium 2.4 mg/dL (1.6-2.6); Phosphorous 4.3 mg/dL (2.7-4.5); Potassium 4.7 mEq/L (3.5-5.1); Total Protein 6.5 g/dL (6.4-8.9)
[2019-06-10] MEDS: *HR* Dextrose 50 % in Water (Syg) 50 ML SYRINGE IVP PRN ×2 (06:19→10:10)
[2019-06-10] MEDS ORDERED: Ondansetron 4 MG/2 ML VIAL IVP PRN (16:47)
[2019-06-10] MEDS: Pantoprazole 40 MG VIAL IVP SCH ×2 (16:51→21:55)
[2019-06-10] MEDS: 0.9 % Sodium Chloride 1,000 ML IVC SCH (21:43)
[2019-06-11 07:31] VITALS: BP 128/75
[2019-06-11] MEDS ORDERED: Ketorolac 15 MG/ML VIAL IVP ONE (09:49)
[2019-06-11 09:59] LABS: Hematocrit 32.4 % (35.3-44.9); Mean Corpuscular Volume 91.3 fL (83.0-100.0); Mean Platelet Volume 9.3 fL (9.4-12.4); Platelet Count 205 K/mcL (140-400); Red Blood Count 3.55 M/mcL (3.82-4.97); Red Cell Distribution Width 13.1 % (11.5-14.5)
[2019-06-11 10:00] LABS: White Blood Count 8.9 K/mcL (4.3-11.1)
[2019-06-11] MEDS: Pantoprazole 40 MG VIAL IVP SCH (10:04)
== END 2019-06-11 13:15 | DRG 817 ==
LOC: EDBD → EMEROOARM 19:04 → 2NNU 19:04 → MERGE 22:31 → SUATTDRO 22:31 → 2NNU 23:38 → 3BNU 06-10 15:30
PROVIDERS: ADMIT Internal Medicine; ATTEND Internal Medicine

== ENCOUNTER 2019-06-11 13:11 | Inpatient (IN) ==
[2019-06-11] MEDS ORDERED: Mag Hydrox/Al Hydrox/Simeth 30 ML UDC PO PRN (13:22)
[2019-06-11] MEDS ORDERED: traZODone 50 MG TABLET PO PRN (13:22)
[2019-06-11] MEDS ORDERED: Ibuprofen 400 MG TABLET PO PRN (13:22)
[2019-06-11] MEDS ORDERED: *HR* LORazepam 1 MG TABLET PO PRN (13:22)
[2019-06-11] MEDS ORDERED: *HR* LORazepam 2 MG/ML VIAL IM PRN (13:22)
[2019-06-11] MEDS ORDERED: Haloperidol Lactate 5 MG/ML VIAL IM PRN (13:22)
[2019-06-11] MEDS ORDERED: MOM Conc 10 ML UD.LIQ PO PRN (13:22)
[2019-06-11] MEDS: Nicotine 2 MG GUM BC PRN ×2 (18:20→20:56)
[2019-06-11] MEDS: hydrOXYzine pamoate 25 MG CAPSULE PO PRN (20:55)
[2019-06-12] MEDS: Gabapentin 300 MG CAPSULE PO SCH ×2 (09:31→21:10)
[2019-06-12] MEDS: Topiramate 100 MG TABLET PO SCH ×2 (09:31→21:10)
[2019-06-12] MEDS: Nicotine 2 MG GUM BC PRN ×3 (10:16→21:10)
[2019-06-12] MEDS ORDERED: risperiDONE 1 MG TABLET PO SCH (21:00)
[2019-06-12] MEDS: hydrOXYzine pamoate 25 MG CAPSULE PO PRN (21:10)
[2019-06-13] MEDS: Gabapentin 300 MG CAPSULE PO SCH (08:17)
[2019-06-13] MEDS: Topiramate 100 MG TABLET PO SCH (08:17)
[2019-06-13 08:29] VITALS: BP 110/67
[2019-06-13 08:33] LABS: Chol/HDL Ratio 3.5 (0-4.9)
[2019-06-13 09:17] LABS: Estimated Average Glucose 111 mg/dl
== END 2019-06-13 09:35 | disposition home or self-care (01) | DRG 751 ==
LOC: 1ANU 13:11
PROVIDERS: ADMIT Psychiatry & Neurology Psychiatry; ATTEND Psychiatry & Neurology Psychiatry

== ENCOUNTER 2019-07-21 19:14 | Inpatient (IN) ==
[2019-07-21] MEDS ORDERED: 0.9 % Sodium Chloride 1,000 ML IVC ONE ×2 (19:20→21:35)
[2019-07-21 20:14] LABS: Basophils % 0.5 %; Eosinophils # 0.2 K/mcL (0.0-0.6); Eosinophils % 2.7 %; Hemoglobin 12.3 g/dL (11.5-15.4); Immature Granulocytes % 0.2 % (0-4); Lymphocytes # 1.7 K/mcL (0.6-4.6); Lymphocytes % 20.4 %; Mean Corpuscular HGB Conc 35.1 g/dL (31.6-35.5); Mean Corpuscular Hemoglobin 30.5 pg (28.0-33.3); Mean Corpuscular Volume 86.8 fL (83.0-100.0); Mean Platelet Volume 9.1 fL (9.4-12.4); Monocytes # 0.6 K/mcL (0.0-1.3); Monocytes % 6.9 %; Neutrophils # 5.6 K/mcL (1.6-8.9); Platelet Count 346 K/mcL (140-400); Red Blood Count 4.03 M/mcL (3.82-4.97); Red Cell Distribution Width 12.3 % (11.5-14.5); Segmented Neutrophils % 69.3 %; White Blood Count 8.1 K/mcL (4.3-11.1)
[2019-07-21 20:15] LABS: INR 1.1
[2019-07-21 20:17] LABS: Activated Partial Thrombo Time 33.5 Seconds (26.0-36.0)
[2019-07-21 20:29] LABS: Carboxyhemoglobin 5.9 % (0-5)
[2019-07-21 20:31] LABS: Acetaminophen < 10 mcg/mL (10-20); Alanine Aminotransferase 34 Units/L (7-52); Albumin/Globulin Ratio 1.3 (1.1-2.2); Alkaline Phosphatase 156 Units/L (34-104); Aspartate Amino Transferase 62 Units/L (13-39); BUN/Creatinine Ratio 7 (6-26); Bilirubin,Direct 0.2 mg/dL (0.0-0.2); Bilirubin,Indirect 0.2 mg/dL (0.0-1.0); Bilirubin,Total 0.4 mg/dL (0.3-1.0); Blood Urea Nitrogen 5 mg/dL (6-20); Calcium 9.2 mg/dL (8.6-10.3); Carbon Dioxide 19 mEq/L (23-29); Chloride 104 mEq/L (98-107); Ethanol < 10 mg/dL (Less than 10); Glucose 88 mg/dL (70-105); Osmolality,Calculated 285 (280-300); Potassium 3.3 mEq/L (3.5-5.1); Salicylate < 2.5 mg/dL (15.0-30.0); Sodium 139 mEq/L (136-145); eGFR For African Americans > 60 (> 60); eGFR For Non-African Americans > 60 (> 60)
[2019-07-21 20:35] LABS: ABG Base Excess -4 mEq/L (-2 to 3); ABG HCO3 23 mEq/L (21-27); ABG Oxygen Saturation 96 % (95-98); ABG PCO2 49 mmHg (35-45); ABG PH 7.28 pH Units (7.32-7.45); ABG PO2 95 mmHg (85-104); ABG TCO2 25 mEq/L (20-26)
[2019-07-21 20:38] LABS: Magnesium 1.7 mg/dL (1.6-2.6)
[2019-07-21 20:39] LABS: Amphetamine Screen,Urine Positive ng/mL (Cutoff=1000); Barbiturate Screen,Urine Negative ng/mL (Cutoff=200); Benzodiazepines Screen,Urine Negative ng/mL (Cutoff=200); Cannabinoid Screen,Urine Negative ng/mL (Cutoff = 50); Cocaine Screen,Urine Negative ng/mL (Cutoff= 300); Opiate Screen,Urine Negative ng/mL (Cutoff=300); Phencyclidine Screen,Urine Negative ng/mL (Cutoff=25)
[2019-07-21 22:39] LABS: Bilirubin,Urine Negative (Negative); Blood,Urine Small (Negative); Clarity,Urine Clear (Clear); Color,Urine Yellow (Yellow); Glucose,Urine (UA) Normal (Normal); Ketones,Urine Negative (Negative); Leukocyte Esterase,Urine Negative (Negative); Nitrite,Urine Negative (Negative); Protein,Urine Negative (Neg-Trace); Specific Gravity,Urine 1.012 (1.010-1.025); Urobilinogen,Urine Normal (Normal)
[2019-07-21 22:40] LABS: Bacteria,Urine None Seen per hpf (None-Few); Hyaline Casts,Urine None Seen per lpf (None-Few); RBC,Urine 0-3 per hpf (0-3); Squamous Epithelial Cell,Urine Many per lpf (None-Few); WBC,Urine 0-3 per hpf (0-3)
[2019-07-22] MEDS ORDERED: Naloxone 0.4 MG/ML INJ IVP PRN (04:11)
[2019-07-22] MEDS: 0.9 % Sodium Chloride 1,000 ML IVC SCH ×2 (04:37→12:05)
[2019-07-22] MEDS ORDERED: Milk and Molasses Enema 200 ML RC ONE (09:01)
[2019-07-22] MEDS: Lactulose Oral Soln 20 GM/30 ML UDC PO SCH ×2 (11:40→19:30)
[2019-07-22 15:37] LABS: ABG Base Excess -13 mEq/L (-2 to 3); ABG HCO3 15 mEq/L (21-27); ABG Oxygen Saturation 95 % (95-98); ABG PCO2 41 mmHg (35-45); ABG PH 7.17 pH Units (7.32-7.45); ABG PO2 93 mmHg (85-104); ABG TCO2 16 mEq/L (20-26)
[2019-07-22] MEDS ORDERED: Sodium Bicarbonate 150 MEQ in D5% in Water 1,000 ML IVC ONE (15:45)
[2019-07-22 15:50] LABS: Basophils % 0.2 %; Hematocrit 41.3 % (35.3-44.9); Hemoglobin 13.9 g/dL (11.5-15.4); Immature Granulocytes % 0.9 % (0-4); Lymphocytes # 1.1 K/mcL (0.6-4.6); Lymphocytes % 5.4 %; Mean Corpuscular HGB Conc 33.7 g/dL (31.6-35.5); Mean Corpuscular Hemoglobin 30.9 pg (28.0-33.3); Mean Corpuscular Volume 91.8 fL (83.0-100.0); Mean Platelet Volume 8.9 fL (9.4-12.4); Monocytes # 1.1 K/mcL (0.0-1.3); Monocytes % 5.5 %; Neutrophils # 17.7 K/mcL (1.6-8.9); Platelet Count 387 K/mcL (140-400); Red Cell Distribution Width 13.1 % (11.5-14.5); White Blood Count 20.1 K/mcL (4.3-11.1)
[2019-07-22 17:45] LABS: Basophils % 0.2 %; Eosinophils % 0.1 %; Hematocrit 40.7 % (35.3-44.9); Hemoglobin 13.7 g/dL (11.5-15.4); Immature Granulocytes % 1.2 % (0-4); Lymphocytes # 1.1 K/mcL (0.6-4.6); Lymphocytes % 6.2 %; Mean Corpuscular HGB Conc 33.7 g/dL (31.6-35.5); Mean Corpuscular Hemoglobin 30.4 pg (28.0-33.3); Mean Corpuscular Volume 90.4 fL (83.0-100.0); Monocytes # 1.2 K/mcL (0.0-1.3); Monocytes % 6.4 %; Neutrophils # 15.5 K/mcL (1.6-8.9); Platelet Count 407 K/mcL (140-400); Red Cell Distribution Width 13.1 % (11.5-14.5); Segmented Neutrophils % 85.9 %
[2019-07-22 17:46] LABS: Calcium 7.9 mg/dL (8.6-10.3); Magnesium 2.3 mg/dL (1.6-2.6); Potassium 5.2 mEq/L (3.5-5.1)
[2019-07-22] MEDS ORDERED: *HR* Midazolam HCl 2 MG/2 ML VIAL IVP ONE (20:55)
[2019-07-22] MEDS ORDERED: Vancomycin (wt based) 1,000 MG VIAL IVPB SCH (21:00)
[2019-07-22] MEDS ORDERED: *HR* LORazepam 2 MG/ML VIAL IVP PRN (21:50)
[2019-07-22 22:10] LABS: VBG HCO3 19 mEq/L (21-27); VBG PCO2 48 mmHg (41-51); VBG PO2 94 mmHg (25-50)
[2019-07-22 22:18] LABS: Rheumatoid Factor < 10 IU/mL (Less than 14)
[2019-07-22] MEDS ORDERED: Calcium Gluconate 1,000 MG/10 ML VIAL IVP ONE (22:18)
[2019-07-22 22:19] LABS: Calcium 7.5 mg/dL (8.6-10.3); Magnesium 2.2 mg/dL (1.6-2.6)
[2019-07-22 22:26] LABS: Procalcitonin 0.17 ng/mL (0.00-0.15)
[2019-07-22] MEDS ORDERED: Calcium Gluconate 1gm/50mL 1 GM/50 ML BAG IVPB ONE ×2 (22:30→23:30)
[2019-07-22 22:31] LABS: Albumin 3.5 g/dL (3.5-5.7); Albumin/Globulin Ratio 1.2 (1.1-2.2); Bilirubin,Indirect 0.2 mg/dL (0.0-1.0); Bilirubin,Total 0.2 mg/dL (0.3-1.0); Globulin 2.9 g/dL (2.4-3.5); Total Protein 6.4 g/dL (6.4-8.9)
[2019-07-22] MEDS: MetroNIDAZOLE 500 MG/100 ML 500 MG/100 ML BAG IVPB SCH (22:35)
[2019-07-22] MEDS: Cefepime HCl 1,000 MG in Water for inj. (sterile) 10 ML IVP SCH (22:36)
[2019-07-22] MEDS: Pantoprazole 40 MG VIAL IVP SCH (22:36)
[2019-07-22 22:57] LABS: ABG Base Excess -9 mEq/L (-2 to 3); ABG HCO3 19 mEq/L (21-27); ABG Oxygen Saturation 96 % (95-98); ABG PCO2 48 mmHg (35-45); ABG PH 7.21 pH Units (7.32-7.45); ABG PO2 98 mmHg (85-104); ABG TCO2 21 mEq/L (20-26)
[2019-07-22] MEDS ORDERED: CALCIUM GLUCONATE IVC SCH ×2 (23:00)
[2019-07-22] MEDS ORDERED: Sodium Bicarbonate 150 MEQ in D5% in Water 1,000 ML IVC SCH (23:00)
[2019-07-22] MEDS ORDERED: D5 IVC SCH ×2 (23:00)
[2019-07-22] MEDS ORDERED: SODIUM BICARBONATE IVC SCH ×2 (23:00)
[2019-07-22] MEDS ORDERED: WATER IVC SCH ×2 (23:00)
[2019-07-23] MEDS ORDERED: *HR* Dextrose 50 % in Water (Syg) 50 ML SYRINGE IVP ONE (00:12)
[2019-07-23] MEDS: MetroNIDAZOLE 500 MG/100 ML 500 MG/100 ML BAG IVPB SCH ×4 (00:18→22:57)
[2019-07-23 02:02] LABS: Hematocrit 37.9 % (35.3-44.9); Hemoglobin 12.3 g/dL (11.5-15.4); Mean Corpuscular HGB Conc 32.5 g/dL (31.6-35.5); Mean Corpuscular Hemoglobin 30.9 pg (28.0-33.3); Mean Corpuscular Volume 95.2 fL (83.0-100.0); Mean Platelet Volume 9.2 fL (9.4-12.4); Platelet Count 350 K/mcL (140-400); Red Blood Count 3.98 M/mcL (3.82-4.97); Red Cell Distribution Width 13.1 % (11.5-14.5); White Blood Count 26.8 K/mcL (4.3-11.1)
[2019-07-23 02:20] LABS: Calcium 7.3 mg/dL (8.6-10.3); Potassium 4.2 mEq/L (3.5-5.1)
[2019-07-23 03:03] LABS: Sodium, Urine 64.1 mEq/L
[2019-07-23 03:42] LABS: Bilirubin,Urine Negative (Negative); Clarity,Urine Clear (Clear); Color,Urine Yellow (Yellow); Glucose,Urine (UA) Normal (Normal); Ketones,Urine Negative (Negative); Specific Gravity,Urine 1.014 (1.010-1.025)
[2019-07-23 03:43] LABS: Blood,Urine Negative (Negative); Leukocyte Esterase,Urine Negative (Negative); Nitrite,Urine Negative (Negative); Protein,Urine Trace mg/dL (Neg-Trace); Urobilinogen,Urine Normal (Normal)
[2019-07-23 03:47] LABS: Bacteria,Urine Few per hpf (None-Few); RBC,Urine 0-3 per hpf (0-3); WBC,Urine 0-3 per hpf (0-3)
[2019-07-23] MEDS ORDERED: 0.9 % Sodium Chloride 1,000 ML IV ONE (05:52)
[2019-07-23] MEDS ORDERED: Pantoprazole 40 MG VIAL IVP SCH (06:00)
[2019-07-23] MEDS: Cefepime HCl 1,000 MG in Water for inj. (sterile) 10 ML IVP SCH (06:48)
[2019-07-23] MEDS: Pantoprazole 40 MG VIAL IVP SCH ×2 (06:49→18:44)
[2019-07-23] MEDS: Calcium Gluconate 1gm/50mL 1 GM/50 ML BAG IVPB SCH ×3 (06:49→09:59)
[2019-07-23] MEDS ORDERED: Aminoglycoside Consult 1 EACH MC ONE (08:08)
[2019-07-23] MEDS: Lactulose Oral Soln 20 GM/30 ML UDC PO SCH ×2 (08:28→20:34)
[2019-07-23] MEDS: Azithromycin 500 MG in 0.9 % Sodium Chloride 250 ML IVPB SCH (12:00)
[2019-07-23] MEDS: cefTRIAXone 2,000 MG in Water for inj. (sterile) 20 ML IVP SCH (12:00)
[2019-07-23] MEDS ORDERED: 0.9 % Sodium Chloride 1,000 ML IVC SCH ×2 (12:00→22:45)
[2019-07-23] MEDS: Sodium Bicarbonate 150 MEQ in D5% in Water 1,000 ML IVC SCH (15:57)
[2019-07-24] MEDS: Pantoprazole 40 MG VIAL IVP SCH ×2 (04:17→17:49)
[2019-07-24 06:57] LABS: Basophils % 0.2 %; Eosinophils # 0.1 K/mcL (0.0-0.6); Eosinophils % 1.3 %; Hematocrit 27.7 % (35.3-44.9); Hemoglobin 9.3 g/dL (11.5-15.4); Immature Granulocytes % 0.3 % (0-4); Lymphocytes # 1.7 K/mcL (0.6-4.6); Lymphocytes % 19.7 %; Mean Corpuscular HGB Conc 33.6 g/dL (31.6-35.5); Mean Corpuscular Hemoglobin 30.9 pg (28.0-33.3); Mean Platelet Volume 9.2 fL (9.4-12.4); Monocytes # 0.7 K/mcL (0.0-1.3); Monocytes % 8.4 %; Neutrophils # 6.1 K/mcL (1.6-8.9); Platelet Count 204 K/mcL (140-400); Red Blood Count 3.01 M/mcL (3.82-4.97); Segmented Neutrophils % 70.1 %; White Blood Count 8.7 K/mcL (4.3-11.1)
[2019-07-24 07:35] LABS: BUN/Creatinine Ratio 16 (6-26); Blood Urea Nitrogen 15 mg/dL (6-20); Calcium 7.5 mg/dL (8.6-10.3); Carbon Dioxide 27 mEq/L (23-29); Chloride 109 mEq/L (98-107); Glucose 92 mg/dL (70-105); Osmolality,Calculated 296 (280-300); Sodium 143 mEq/L (136-145); eGFR For African Americans > 60 (> 60); eGFR For Non-African Americans > 60 (> 60)
[2019-07-24] MEDS: MetroNIDAZOLE 500 MG/100 ML 500 MG/100 ML BAG IVPB SCH (08:50)
[2019-07-24] MEDS: Lactulose Oral Soln 20 GM/30 ML UDC PO SCH ×2 (08:50→21:20)
[2019-07-24] MEDS: cefTRIAXone 2,000 MG in Water for inj. (sterile) 20 ML IVP SCH (11:21)
[2019-07-24] MEDS: Azithromycin 500 MG in 0.9 % Sodium Chloride 250 ML IVPB SCH (11:21)
[2019-07-24] MEDS: Sodium Bicarbonate 150 MEQ in D5% in Water 1,000 ML IVC SCH ×2 (11:43→21:30)
[2019-07-24] MEDS ORDERED: *HR* Promethazine 25 MG/ML VIAL IVP ONE (13:13)
[2019-07-24 14:49] LABS: BUN/Creatinine Ratio 12 (6-26); Blood Urea Nitrogen 9 mg/dL (6-20); Calcium 7.7 mg/dL (8.6-10.3); Carbon Dioxide 27 mEq/L (23-29); Chloride 112 mEq/L (98-107); Glucose 99 mg/dL (70-105); Osmolality,Calculated 297 (280-300); Potassium 3.3 mEq/L (3.5-5.1); Sodium 144 mEq/L (136-145); eGFR For African Americans > 60 (> 60); eGFR For Non-African Americans > 60 (> 60)
[2019-07-25] MEDS: Sodium Bicarbonate 150 MEQ in D5% in Water 1,000 ML IVC SCH (01:17)
[2019-07-25] MEDS: Pantoprazole 40 MG VIAL IVP SCH ×2 (06:31→16:28)
[2019-07-25] MEDS: Lactulose Oral Soln 20 GM/30 ML UDC PO SCH ×2 (10:16→21:11)
[2019-07-25] MEDS ORDERED: Bismuth Subsalicylate 120 ML ORAL SUSPENSION PO PRN (15:12)
[2019-07-25 21:57] LABS: Hepatitis B Surface Antigen Nonreactive (Nonreactive)
[2019-07-25 22:28] LABS: Hepatitis A Antibody IgM Nonreactive (Nonreactive)
[2019-07-26 00:17] LABS: Hepatitis C Virus Antibody Reactive (Nonreactive)
[2019-07-26] MEDS: Pantoprazole 40 MG VIAL IVP SCH (05:21)
[2019-07-26 10:02] LABS: Basophils % 0.4 %; Eosinophils # 0.2 K/mcL (0.0-0.6); Hematocrit 26.6 % (35.3-44.9); Hemoglobin 9.4 g/dL (11.5-15.4); Immature Granulocytes % 0.4 % (0-4); Lymphocytes # 1.9 K/mcL (0.6-4.6); Lymphocytes % 25.5 %; Mean Corpuscular HGB Conc 35.3 g/dL (31.6-35.5); Mean Corpuscular Hemoglobin 30.7 pg (28.0-33.3); Mean Corpuscular Volume 86.9 fL (83.0-100.0); Mean Platelet Volume 9.5 fL (9.4-12.4); Monocytes # 0.6 K/mcL (0.0-1.3); Monocytes % 8.1 %; Neutrophils # 4.7 K/mcL (1.6-8.9); Platelet Count 228 K/mcL (140-400); Red Blood Count 3.06 M/mcL (3.82-4.97); Red Cell Distribution Width 12.4 % (11.5-14.5); Segmented Neutrophils % 62.6 %; White Blood Count 7.4 K/mcL (4.3-11.1)
[2019-07-26] MEDS: Lactulose Oral Soln 20 GM/30 ML UDC PO SCH (10:04)
[2019-07-26 11:03] LABS: BUN/Creatinine Ratio 8 (6-26); Blood Urea Nitrogen 4 mg/dL (6-20); Calcium 8.3 mg/dL (8.6-10.3); Carbon Dioxide 33 mEq/L (23-29); Chloride 101 mEq/L (98-107); Glucose 91 mg/dL (70-105); Magnesium 1.4 mg/dL (1.6-2.6); Osmolality,Calculated 290 (280-300); Potassium 2.9 mEq/L (3.5-5.1); Sodium 142 mEq/L (136-145); eGFR For African Americans > 60 (> 60); eGFR For Non-African Americans > 60 (> 60)
[2019-07-26 11:57] VITALS: BP 131/77
[2019-07-26 14:08] LABS: CK-BB (CK isoenzymes) 0 % (0-0); CK-MB (CK isoenzymes) 0 % (0-4); CK-MM (CK-isoenzymes) 100 % (96-100)
[2019-07-26 14:44] LABS: CK Total (Ck Isoenzymes) 175 U/L (20-180)
== END 2019-07-26 14:17 | disposition left against medical advice (07) | DRG 817 ==
LOC: EMEROOARM 19:14 → 2NENU 19:14 → 2NNU 07-22 22:24 → SUATTDRO 07-23 10:40 → 2ANU 07-24 11:32
PROVIDERS: ADMIT Internal Medicine; ATTEND Pharmacist

== ENCOUNTER 2019-10-07 14:24 | Inpatient (IN) ==
[2019-10-07] MEDS ORDERED: *HR* LORazepam 1 MG TABLET PO ONE ×3 (14:33→20:04)
[2019-10-07 15:33] LABS: Basophils % 0.3 %; Eosinophils # 0.5 K/mcL (0.0-0.6); Eosinophils % 4.2 %; Hematocrit 35.2 % (35.3-44.9); Immature Granulocytes % 4.3 % (0-4); Lymphocytes % 8.8 %; Mean Corpuscular HGB Conc 34.1 g/dL (31.6-35.5); Mean Corpuscular Hemoglobin 29.8 pg (28.0-33.3); Mean Corpuscular Volume 87.3 fL (83.0-100.0); Mean Platelet Volume 9.6 fL (9.4-12.4); Monocytes # 0.7 K/mcL (0.0-1.3); Monocytes % 6.4 %; Neutrophils # 8.3 K/mcL (1.6-8.9); Platelet Count 278 K/mcL (140-400); Red Blood Count 4.03 M/mcL (3.82-4.97); Red Cell Distribution Width 12.1 % (11.5-14.5); White Blood Count 10.9 K/mcL (4.3-11.1)
[2019-10-07 15:52] LABS: Acetaminophen < 10 mcg/mL (10-20); BUN/Creatinine Ratio 19 (6-26); Blood Urea Nitrogen 15 mg/dL (6-20); Calcium 9.8 mg/dL (8.6-10.3); Carbon Dioxide 19 mEq/L (23-29); Chloride 105 mEq/L (98-107); Ethanol < 10 mg/dL (Less than 10); Glucose 93 mg/dL (70-105); Osmolality,Calculated 287 (280-300); Potassium 3.5 mEq/L (3.5-5.1); Salicylate < 2.5 mg/dL (15.0-30.0); Sodium 138 mEq/L (136-145); eGFR For African Americans > 60 (> 60); eGFR For Non-African Americans > 60 (> 60)
[2019-10-07 16:04] LABS: Platelet Estimate Normal (Normal)
[2019-10-07 16:18] LABS: Bacteria,Urine None Seen per hpf (None-Few); Bilirubin,Urine Negative (Negative); Blood,Urine Negative (Negative); Clarity,Urine Clear (Clear); Color,Urine Yellow (Yellow); Glucose,Urine (UA) Normal (Normal); Hyaline Casts,Urine None Seen per lpf (None-Few); Ketones,Urine Trace mg/dL (Negative); Leukocyte Esterase,Urine Negative (Negative); Nitrite,Urine Negative (Negative); PH,Urine 6.5 pH Units (5.0-8.0); Protein,Urine 30 mg/dL (Neg-Trace); Specific Gravity,Urine 1.019 (1.010-1.025); Squamous Epithelial Cell,Urine Many per lpf (None-Few); Urobilinogen,Urine Normal (Normal)
[2019-10-07 16:24] LABS: Amphetamine Screen,Urine Positive ng/mL (Cutoff=1000); Barbiturate Screen,Urine Negative ng/mL (Cutoff=200); Benzodiazepines Screen,Urine Negative ng/mL (Cutoff=200); Cannabinoid Screen,Urine Negative ng/mL (Cutoff = 50); Cocaine Screen,Urine Negative ng/mL (Cutoff= 300); Opiate Screen,Urine Negative ng/mL (Cutoff=300); Phencyclidine Screen,Urine Negative ng/mL (Cutoff=25)
[2019-10-07] MEDS: Nicotine 21 MG PATCH.TD24 TD SCH (18:48)
[2019-10-07] MEDS ORDERED: haloperidoL 5 MG TABLET PO PRN (19:31)
[2019-10-07] MEDS ORDERED: Haloperidol Lactate 5 MG/ML VIAL IM PRN (19:31)
[2019-10-07] MEDS ORDERED: Acetaminophen 325 MG TABLET PO PRN (19:31)
[2019-10-07] MEDS ORDERED: *HR* LORazepam 2 MG/ML VIAL IM PRN (19:31)
[2019-10-07] MEDS ORDERED: MOM Conc 10 ML UD.LIQ PO PRN (19:31)
[2019-10-07] MEDS ORDERED: QUEtiapine Fumarate 25 MG TABLET PO PRN (19:31)
[2019-10-07] MEDS ORDERED: Mag Hydrox/Al Hydrox/Simeth 30 ML UDC PO PRN (19:31)
[2019-10-07] MEDS ORDERED: *HR* LORazepam 1 MG TABLET PO PRN (19:31)
[2019-10-07] MEDS ORDERED: haloperidoL 5 MG TABLET PO ONE (20:05)
[2019-10-08] MEDS: Nicotine 21 MG PATCH.TD24 TD SCH (13:07)
[2019-10-08] MEDS: hydrOXYzine pamoate 25 MG CAPSULE PO PRN ×2 (15:09→20:41)
[2019-10-08] MEDS: Gabapentin 300 MG CAPSULE PO SCH ×2 (15:10→20:41)
[2019-10-08] MEDS ORDERED: risperiDONE 1 MG TABLET PO SCH (21:00)
[2019-10-09] MEDS: hydrOXYzine pamoate 25 MG CAPSULE PO PRN (04:25)
[2019-10-09] MEDS: Gabapentin 300 MG CAPSULE PO SCH (08:32)
[2019-10-09] MEDS: Nicotine 21 MG PATCH.TD24 TD SCH (08:32)
[2019-10-09 08:51] VITALS: BP 101/67
[2019-10-09] MEDS ORDERED: Loratadine/Pseudophed (12 HR) 1 EACH TABLET PO SCH (09:00)
== END 2019-10-09 10:15 | disposition home or self-care (01) | DRG 776 ==
LOC: EMEROOARM 14:24 → 1ANU 19:28
PROVIDERS: ADMIT Psychiatry & Neurology Psychiatry; ATTEND Psychiatry & Neurology Psychiatry

== ENCOUNTER 2020-04-10 19:52 | Observation (INO) ==
[2020-04-10] MEDS ORDERED: *HR* LORazepam 2 MG/ML VIAL IM ONE (20:16)
[2020-04-10] MEDS ORDERED: Haloperidol Lactate 5 MG/ML VIAL IM ONE (20:16)
[2020-04-10 20:43] LABS: Basophils # 0.1 K/mcL (0.0-0.2); Basophils % 0.4 %; Eosinophils % 0.2 %; Hematocrit 40.1 % (35.3-44.9); Hemoglobin 13.9 g/dL (11.5-15.4); Immature Granulocytes % 0.2 % (0-4); Lymphocytes # 1.1 K/mcL (0.6-4.6); Lymphocytes % 6.7 %; Mean Corpuscular HGB Conc 34.7 g/dL (31.6-35.5); Mean Corpuscular Hemoglobin 31.2 pg (28.0-33.3); Mean Corpuscular Volume 89.9 fL (83.0-100.0); Mean Platelet Volume 9.5 fL (9.4-12.4); Monocytes # 0.8 K/mcL (0.0-1.3); Neutrophils # 14.2 K/mcL (1.6-8.9); Platelet Count 337 K/mcL (140-400); Red Blood Count 4.46 M/mcL (3.82-4.97); Segmented Neutrophils % 87.5 %
[2020-04-10 20:44] LABS: White Blood Count 16.2 K/mcL (4.3-11.1)
[2020-04-10 20:57] LABS: Bilirubin,Urine Negative (Negative); Blood,Urine Small (Negative); Clarity,Urine Turbid (Clear); Color,Urine Yellow (Yellow); Glucose,Urine (UA) Normal (Normal); Hyaline Casts,Urine Many per lpf (None Seen); Ketones,Urine Negative (Negative); Leukocyte Esterase,Urine Trace (Negative); Mucus,Urine Few per lpf (None-Few); Nitrite,Urine Negative (Negative); Protein,Urine 70 mg/dL (Neg-Trace); RBC,Urine 0-3 per hpf (0-3); Specific Gravity,Urine 1.018 (1.010-1.025); Squamous Epithelial Cell,Urine Few per hpf (None-Few); Urobilinogen,Urine Normal (Normal)
[2020-04-10 21:02] LABS: Acetaminophen < 10 mcg/mL (10-20); BUN/Creatinine Ratio 8 (6-26); Blood Urea Nitrogen 9 mg/dL (6-20); Calcium 10.2 mg/dL (8.6-10.3); Carbon Dioxide 19 mEq/L (23-29); Chloride 99 mEq/L (98-107); Ethanol < 10 mg/dL (Less than 10); Glucose 93 mg/dL (70-105); Osmolality,Calculated 282 (280-300); Potassium 3.3 mEq/L (3.5-5.1); Salicylate < 2.5 mg/dL (15.0-30.0); Sodium 137 mEq/L (136-145); eGFR For African Americans > 60 (> 60); eGFR For Non-African Americans 50 (> 60)
[2020-04-10 21:04] LABS: Amphetamine Screen,Urine Positive ng/mL (Cutoff=1000); Barbiturate Screen,Urine Negative ng/mL (Cutoff=200); Benzodiazepines Screen,Urine Negative ng/mL (Cutoff=200); Cannabinoid Screen,Urine Negative ng/mL (Cutoff = 50); Cocaine Screen,Urine Positive ng/mL (Cutoff= 300); Opiate Screen,Urine Negative ng/mL (Cutoff=300); Phencyclidine Screen,Urine Negative ng/mL (Cutoff=25)
[2020-04-10] MEDS ORDERED: 0.9 % Sodium Chloride 1,000 ML IVC ONE ×2 (22:31→23:33)
[2020-04-11] MEDS ORDERED: 0.9 % Sodium Chloride 1,000 ML IVC ONE (07:49)
[2020-04-11] MEDS ORDERED: 0.9 % Sodium Chloride 1,000 ML IVC SCH (09:00)
[2020-04-11] MEDS ORDERED: Ondansetron 4 MG/2 ML VIAL IVP PRN (12:10)
[2020-04-11] MEDS ORDERED: Acetaminophen 325 MG TABLET PO PRN (12:10)
[2020-04-11] MEDS ORDERED: Naloxone 0.4 MG/ML INJ IVP PRN (12:10)
[2020-04-11] MEDS ORDERED: Potassium Chloride Elixir 20 MEQ/15 ML UDC PO ONE (17:10)
[2020-04-11] MEDS ORDERED: *HR* Heparin 5,000 UNIT/ML VIAL SQ SCH (18:00)
[2020-04-11 18:13] VITALS: BP 112/63
[2020-04-11] MEDS ORDERED: Gabapentin 300 MG CAPSULE PO ONE (19:56)
== END 2020-04-11 21:32 | disposition left against medical advice (07) ==
LOC: 3BNU 19:52 → EMEROOARM 19:52 → 3BNU 04-11 12:38
PROVIDERS: ADMIT Internal Medicine; ATTEND Internal Medicine